=== PATIENT | female | born 1945 | race Caucasian/White ===

== ENCOUNTER 2021-07-15 19:57 | Inpatient (IN) | payer OTHER ==
[~2021-07-15] VITALS: Ht 157.5 cm; Wt 70.3 kg
[2021-07-15 20:04] VITALS: BP_SYST 150
--- NOTE | 2021-07-15 20:04 | NUR ---
Placed in room 02 . Placed on spring assembler supervisor, blood pressure machine and pulse oximeter. To gown for exam. Side rails up.
--- NOTE | 2021-07-15 20:15 | NUR ---
ER at bedside examining patient.
[2021-07-15 20:18] LABS: BILIRUBIN,URINE NEGATIVE (NEGATIVE); BLOOD, URINE NEGATIVE (NEGATIVE); CLARITY/URINE CLEAR (CLEAR); COLOR,URINE YELLOW (YELLOW); GLUCOSE,URINE NEGATIVE (NEGATIVE); KETONES,URINE NEGATIVE (NEGATIVE); LEUKOCYTE ESTERASE ,URINE NEGATIVE (NEGATIVE); NITRITE, URINE NEGATIVE (NEGATIVE); PROTEIN URINE NEGATIVE (NEGATIVE); UROBILINOGEN,URINE 0.2 (0.2-1.0)
--- NOTE | 2021-07-15 20:19 | NUR ---
75 yr old AOX2 gabonese speaking female brought in by ALS with a complaint of chest pain. Pt reports feeling pressure but denies difficulty breathing or nausea. Pt has HX of HTN and DM, skin intact and states she uses a wheelchair for assistance. MD at the bedside. will monitor closely.
[2021-07-15 20:47] LABS: BASOPHILS # (AUTO) 0.1 K/uL (0.0-0.2); BASOPHILS % (AUTO) 0.5 % (0.0-2.0); EOSINOPHILS % (AUTO) 0.4 % (0.0-4.0); HEMATOCRIT 36.3 % (36-48); HEMOGLOBIN 12.1 g/dL (12.0-16.0); LYMPHOCYTES # (AUTO) 3.6 K/uL (1.0-5.5); LYMPHOCYTES % (AUTO) 35.9 % (20.5-51.5); MEAN CORPUSCULAR HEMOGLOBIN 32 pg (27-31); MEAN CORPUSCULAR HGB CONC 33 % (32-36); MEAN CORPUSCULAR VOLUME 95 fL (79.0-98.0); MONOCYTES # (AUTO) 0.6 K/uL (0.0-1.0); MONOCYTES % (AUTO) 5.7 % (1.7-9.3); NEUTROPHILS # (AUTO) 5.7 K/uL (1.8-7.7); NEUTROPHILS % (AUTO) 57.5 % (40.0-70.0); PLATELET COUNT (AUTO) 297 K/uL (130-430); RED BLOOD CELL COUNT(AUTO) 3.81 MIL/uL (4.2-6.2); RED CELL DISTRIBUTION WIDTH 14.3 % (9.0-15.0)
[2021-07-15 20:53] LABS: ANION GAP 8 (5-15); CALCIUM 10.9 mg/dL (8.4-11.0); CHLORIDE 105 mmol/L (98-107); CREATININE 0.88 mg/dL (0.55-1.30); GLUCOSE 165 mg/dL (70-99); POTASSIUM 4.5 mmol/L (3.5-5.1); SODIUM SERUM 138 mmol/L (136-145); UREA NITROGEN, BLOOD 25 mg/dL (8-21)
[2021-07-15 21:08] LABS: ALANINE AMINOTRANSFERASE 12 U/L (12-78); ALBUMIN 3.3 g/dL (3.4-4.8); ASPARTATE AMINOTRANSFERASE 19 U/L (10-37); LIPASE 197 U/L (73-393); TOTAL BILIRUBIN 0.5 mg/dL (0.0-1.0)
[2021-07-15] MEDS ORDERED: NITROGLYCERIN 1 INCH (GM) OINT. TP ONE (22:00)
[2021-07-15] MEDS ORDERED: NITROGLYCERIN 0.4 MG TAB.SUBL SL ONE (22:00)
[2021-07-15] MEDS ORDERED: NACL 0.9% 1,000 ML IV ONE ×2 (22:30→23:00)
[2021-07-15] MEDS ORDERED: cefTRIAXone 1 GM IVPB PREMIX 50 ML IV ONE (23:00)
[2021-07-15] MEDS ORDERED: PIPERACILLIN/TAZO 3.375 GM in NS 50 ML IV ONE (23:00)
[2021-07-15] MEDS ORDERED: ACETAMINOPHEN 325 MG TABLET PO PRN (23:00)
[2021-07-15] MEDS ORDERED: HYDROcodone/ACETAMIN 5-325 MG TAB (NORCO/ VICODIN) PO PRN (23:00)
[2021-07-15] MEDS ORDERED: ALBUTEROL SULFATE 0.083% 2.5 MG/3 ML VIAL.NEB INH PRN (23:00)
[2021-07-15] MEDS ORDERED: ONDANSETRON HCL 4 MG/2 ML VIAL IVP PRN (23:00)
--- NOTE | 2021-07-15 23:26 | NUR ---
Admit bed requested Patient will be admitted to care of . Admitted to TELE unit. Diagnosis CHEST PAIN Inpatient (Yes or No) NO Observation (Yes or No) YES Orientation concerns or request close to nursing station (Yes or No) YES Covid Status NEGATIVE On vent or bipap NO Isolation requirements NO Needs a sitter NO From Home (Yes or if No enter name of facility) YES Requires Dialysis (Yes or No) NO Med Rec Completed (Yes of No) PENDING
--- NOTE | 2021-07-16 | NUR ---
PT SOILED WITH URINE. PT CLEANED AND REPOSITIONED. LINENS CHANGED AND PT GOWN CHANGED. PT PENDING ADMISSION, WILL MONITOR CLOSELY
[2021-07-16] MEDS ORDERED: PIPERACILLIN/TAZOBACTAM 3.375 GM/VIAL (ZOSYN) IV ONE (00:38)
--- NOTE | 2021-07-16 01:30 | NUR ---
Admission Note RECEIVED PT FROM ER WITH DIAGNOSIS OF CHESTPAIN. AOX2,SLIGHTLY DISORIENTED, INITIAL PLAN OF CARE DISCUSSED-PATIENT NEEDS FURTHER TEACHING, ORIENTED TO ROOM,CALL LIGHT , PAIN MANAGEMENT AND SAFETY, CALL LIGHT WITHIN REACH, SIDE RAILS UP X3, BSC WITHIN IMMEDIATE REACH, PT REPOSITIONS SELF PER COMFORT, WILL CONTINUE TO MONITOR.
--- NOTE | 2021-07-16 01:45 | NUR ---
CONSULTATION PAGED/CALLED Reason for Consultation: CHEST PAIN Person Who was Notified: BERONICA Consulting Physician: SAIRA Visual Aid Expert Specialty: Ordering Physician: FRED
--- NOTE | 2021-07-16 01:50 | NUR ---
BEDSIDE REPORT LONA TO PADMINI OAKLEY. PT TRANSPORTED IN STABLE CONDITION, WITH ALL BELONGINGS. ALL QUESTONS ANSWERED
[2021-07-16 01:58] VITALS: BP_SYST 124
[2021-07-16 03:57] VITALS: BP_SYST 150
--- NOTE | 2021-07-16 06:00 | NUR ---
PT RESTING COMFORTABLY IN BED, NO ACUTE DISTRESS OR DISCOMFORT NOTED, BED EXIT ALARM ON, ALL FALL PROTOCOLS MAINTAINED, WILL CONTINUE TO MONITOR.
[2021-07-16 07:01] LABS: ALANINE AMINOTRANSFERASE 15 U/L (12-78); ALBUMIN 2.8 g/dL (3.4-4.8); ANION GAP 7 (5-15); ASPARTATE AMINOTRANSFERASE 20 U/L (10-37); CHLORIDE 107 mmol/L (98-107); CREATININE 0.81 mg/dL (0.55-1.30); GLUCOSE 98 mg/dL (70-99); POTASSIUM 3.7 mmol/L (3.5-5.1); SODIUM SERUM 141 mmol/L (136-145); TOTAL BILIRUBIN 0.3 mg/dL (0.0-1.0); UREA NITROGEN, BLOOD 22 mg/dL (8-21)
[2021-07-16 07:20] LABS: BASOPHILS % (AUTO) 0.4 % (0.0-2.0); EOSINOPHILS # (AUTO) 0.1 K/uL (0.0-0.4); HEMOGLOBIN 11.1 g/dL (12.0-16.0); LYMPHOCYTES # (AUTO) 3.6 K/uL (1.0-5.5); LYMPHOCYTES % (AUTO) 38.7 % (20.5-51.5); MEAN CORPUSCULAR HEMOGLOBIN 32 pg (27-31); MEAN CORPUSCULAR HGB CONC 34 % (32-36); MEAN CORPUSCULAR VOLUME 95 fL (79.0-98.0); MONOCYTES # (AUTO) 0.5 K/uL (0.0-1.0); MONOCYTES % (AUTO) 5.8 % (1.7-9.3); NEUTROPHILS % (AUTO) 54.1 % (40.0-70.0); PLATELET COUNT (AUTO) 268 K/uL (130-430); RED BLOOD CELL COUNT(AUTO) 3.48 MIL/uL (4.2-6.2); WHITE BLOOD COUNT (AUTO) 9.3 K/uL (4.8-10.8)
--- NOTE | 2021-07-16 07:27 | NUR ---
SHIFT CHANGE REPORT. REPORT GIVEN TO GEORGIE RN FOR CONTINUITY OF CARE,ALL QUESTIONS WERE ANSWERED AND RN VERBALIZED UNDERSTANDING.
[2021-07-16 08:02] VITALS: BP_SYST 126
[2021-07-16] MEDS: ASPIRIN 81 MG TAB.CHEW PO SCH (08:52)
--- NOTE | 2021-07-16 08:53 | NUR ---
PATIENT'S FAMILY AT BEDSIDE. Addendum: 07/16/21 at 0900 by Mehran Becerril RN ASK FAMILY TO BRING HER HOME MEDS FROM HOME.
[2021-07-16] MEDS ORDERED: TRAZ-250 PO (09:44)
[2021-07-16] MEDS ORDERED: GABA-529 PO (09:44)
[2021-07-16] MEDS ORDERED: METF500S7 PO (09:44)
[2021-07-16] MEDS ORDERED: LOSA100T3 PO (09:44)
[2021-07-16] MEDS ORDERED: INSNLG7030 SUBCUT (09:44)
[2021-07-16] MEDS ORDERED: ASPI-859 PO (09:44)
--- NOTE | 2021-07-16 09:51 | NUR ---
DR CHÁVEZ HERE AND SEEN PT.
[2021-07-16] MEDS ORDERED: POLYETHYLENE GLYCOL 3350, 17 GM/ POWD.PACK PO ONE (11:15)
[2021-07-16] MEDS: NACL 0.9% 1,000 ML IV SCH ×2 (11:18→20:54)
--- NOTE | 2021-07-16 11:20 | NUR ---
PT COMPLAINED OF CHESTPAIN, , PATIENT PLACED ON O2 2L PER NC. PAGED AND INFORMED DR CHÁVEZ, NEW ORDERS GIVEN AND CARRIED OUT. WILL CONT TO MONITOR.
--- NOTE | 2021-07-16 11:38 | NUR ---
Department Clerk FORTUNATO Schreiber received a request for support from PADMINI Lanier while she is supporting case management. At this time they are making attempts to locate previous home health provider. SCRIPT EDITOR reviewed notes from previous stay and provided PADMINI Lanier with contact information for HCP Analytic Programmer Sirisha to assist with needed information. FORTUNATO Schreiber will continue to be available as needed
[2021-07-16] MEDS: NITROGLYCERIN 0.4 MG TAB.SUBL SL PRN (11:41)
--- NOTE | 2021-07-16 11:41 | NUR ---
PT GIVEN NITROGLY, PT STATED THAT CHEST PAIN IS A LITTLE BETTER THIS TIME. WILL CONT TO MONITOR.
[2021-07-16] MEDS ORDERED: MORPHINE 2 MG/ML INJ. SYRINGE IVP PRN (11:45)
[2021-07-16] MEDS ORDERED: NALOXONE HCL 0.4 MG/ML AMP (NARCAN) IVP PRN (11:45)
[2021-07-16] MEDS ORDERED: ACETAMINOPHEN 325 MG TABLET PO PRN (11:45)
[2021-07-16 11:50] VITALS: BP_SYST 153
--- NOTE | 2021-07-16 11:53 | NUR ---
PT STATED HER CHEST PAIN IS BETTER NOW BUT SHE HAS HEADACHE NOW. WILL GIVEN TYLENOL. EXPLAINED TO PT THAT IT IS THE SIDE EFFECTS OF NITRO. PT NEEDS FURTHER INSTRUCTION.
--- NOTE | 2021-07-16 12:04 | NUR ---
PT NOW EATING LUNCH, CHEST PAIN IS BETTER NOW, GIVEN TYLENOL FOR HEADACHE. MIRALAX GIVEN TOO.
[2021-07-16] MEDS ORDERED: PEG 400/HYPROMELLOSE/GLYCERIN 15 ML DROPS OP ONE (14:00)
--- NOTE | 2021-07-16 14:18 | NUR ---
ASSISTED PT TO BS COMMODE BY CNI STUDENT RN.
--- NOTE | 2021-07-16 14:54 | NUR ---
Patient not with [facility], patient revoke hospice on admission [facility] [phone] will not be [facility] until 08/01/21
[2021-07-16] MEDS: PEG 400/HYPROMELLOSE/GLYCERIN 15 ML DROPS OP SCH ×2 (17:56→20:55)
[2021-07-16] MEDS ORDERED: metFORMIN HCL 500 MG TABLET PO SCH (18:00)
[2021-07-16] MEDS: INSULIN REGULAR, HUMAN 100 UNITS/ML, 10 ML VIAL (humuLIN R) SUBCUT PRN ×2 (18:01→21:01)
--- NOTE | 2021-07-16 19:30 | NUR ---
OPENING NOTES: Patient received from AM shift. Patient is AA&Ox4 able to communicated needs, denies chest pain or SOB. Chest rise is even and unlabored and patient is RA at this time. Normal heart sounds present S1 & S2 on tele monitoring. Active bowel sounds x4 on auscultation denies pain with palpation. Patient just came off commode where she had x1 Lg bowel movement.. Patient voids and independently in the commode as well. No skin issues are noted. Patient is stable, safety protocols are in place and patient has call light within reach. Will monitor throughout the shift.
[2021-07-16 20:00] VITALS: BP_SYST 147
[2021-07-16] MEDS: traZODone HCL 50 MG TABLET (DESYREL) PO SCH (20:55)
--- NOTE | 2021-07-17 01:00 | NUR ---
Rounds: Patient is in bed resting no s/s of distress is noted at this time. Chest rise continues to be even and unlabored and patient remains on tele monitoring. Safety protocols are in place and patient has call light within reach. Will continue to monitor.
[2021-07-17 02:00] VITALS: BP_SYST 112
[2021-07-17] MEDS: NACL 0.9% 1,000 ML IV SCH ×2 (06:09→18:45)
--- NOTE | 2021-07-17 06:41 | NUR ---
CLOSING NOTES: Patient is in bed resting at this time she is slightly confused as to her current location but cooperative and was able to reorient to situation and environment. All current shift needs have been met and patient is stable at this time. Safety protocols remain in place and patient has call light within reach. Will differ care to AM shift nurse for continuity of care.
[2021-07-17 07:45] VITALS: BP_SYST 134
--- NOTE | 2021-07-17 07:55 | NUR ---
seen pt in bed, pt still very sleepy, vitals taken, bp wnl. no fever. breakfast serve but pt does not want to awaken yet. just closes her eyes. will offer breakfast again later.
[2021-07-17] MEDS: ASPIRIN 81 MG TABLET(ECOTRIN) PO SCH (09:00)
[2021-07-17] MEDS: PEG 400/HYPROMELLOSE/GLYCERIN 15 ML DROPS OP SCH ×4 (09:05→20:36)
[2021-07-17] MEDS: LOSARTAN POTASSIUM 50 MG TABLET (COZAAR) PO SCH (09:06)
[2021-07-17] MEDS: GABAPENTIN 100 MG CAPSULE PO SCH (09:06)
[2021-07-17] MEDS: POLYETHYLENE GLYCOL 3350, 17 GM/ POWD.PACK PO SCH (09:06)
[2021-07-17] MEDS: ASPIRIN 81 MG TAB.CHEW PO SCH (09:06)
--- NOTE | 2021-07-17 09:24 | NUR ---
pt used the bs commode to void. pt set up for breakfast, amd meds offered and taken by pt.
--- NOTE | 2021-07-17 10:20 | NUR ---
pt's spouse at bedside. pt is resting in bed.
[2021-07-17] MEDS: INSULIN REGULAR, HUMAN 100 UNITS/ML, 10 ML VIAL (humuLIN R) SUBCUT PRN ×3 (11:32→20:45)
[2021-07-17 11:42] VITALS: BP_SYST 158
--- NOTE | 2021-07-17 15:00 | NUR ---
PT'S AT BEDSIDE. PT SITTING ON EOB. INFORMED THEM THAT DR GONZALEZ PLANS TO DC PT IN AM.
[2021-07-17 17:29] VITALS: BP_SYST 147
--- NOTE | 2021-07-17 18:58 | NUR ---
PATIENT HAS BEEN STABLE STABLE THE SHIFT, VOID ON THE BS COMMODE, BLOOD SUGAR CHECKED. LEVEL SLIGHTLY ELEVATED. GIVEN INSULIN COVERAGE. POSSIBLE IN AM PER PMD.
--- NOTE | 2021-07-17 19:38 | NUR ---
OPENING NOTES; Patient received from AM shift. Patient is AA&Ox3 able to make needs known, denies any chest pain or SOB at this time. Chest rise is even and unlabored on RA. Normal heart sounds present on tele monitoring. Active bowel sounds x4 on auscultation, denies pain with palpation, no distention is noted at this time. No skin issues noted at this time. Patient has a new PIV to the left forearm 22G patent and infusing NS at 100ml/hr. Patient is continent of Bowel and bladder and ambulates to the bedside commode with minimal assist. Patient is currently stable at this time and safety measures are in place and call light is within reach. Will resume care and monitor throughout the shift.
[2021-07-17 20:00] VITALS: BP_SYST 151
[2021-07-17] MEDS: traZODone HCL 50 MG TABLET (DESYREL) PO SCH (20:37)
[2021-07-17 23:16] VITALS: BP_SYST 137
--- NOTE | 2021-07-18 00:46 | NUR ---
ROUNDS: Patient is in bed resting no s/s of distress at this time. Chest rise is even and unlabored and patient remain on RA. Safety measures are in place, bed alarm is armed, and patient has call light within reach. Will continue to monitor.
[2021-07-18] MEDS: NACL 0.9% 1,000 ML IV SCH ×2 (05:53→11:58)
--- NOTE | 2021-07-18 06:14 | NUR ---
CLOSING NOTES: Patient is in bed resting no s/s of distress at this time. Chest rise is even & unlabored on RA. All shift needs have been met at this time and patient is able to communicate needs. Safety measures are in place as per protocol and patient has call light within reach. Will differ current care to AM shift nurse fro continuity of care.
[2021-07-18 06:19] LABS: BASOPHILS # (AUTO) 0.1 K/uL (0.0-0.2); BASOPHILS % (AUTO) 0.7 % (0.0-2.0); EOSINOPHILS # (AUTO) 0.1 K/uL (0.0-0.4); EOSINOPHILS % (AUTO) 1.2 % (0.0-4.0); HEMATOCRIT 31.9 % (36-48); HEMOGLOBIN 11.1 g/dL (12.0-16.0); LYMPHOCYTES # (AUTO) 3.6 K/uL (1.0-5.5); LYMPHOCYTES % (AUTO) 42.5 % (20.5-51.5); MEAN CORPUSCULAR HEMOGLOBIN 33 pg (27-31); MEAN CORPUSCULAR HGB CONC 35 % (32-36); MEAN CORPUSCULAR VOLUME 94 fL (79.0-98.0); MONOCYTES # (AUTO) 0.6 K/uL (0.0-1.0); MONOCYTES % (AUTO) 7.2 % (1.7-9.3); NEUTROPHILS # (AUTO) 4.1 K/uL (1.8-7.7); NEUTROPHILS % (AUTO) 48.4 % (40.0-70.0); PLATELET COUNT (AUTO) 274 K/uL (130-430); RED CELL DISTRIBUTION WIDTH 13.5 % (9.0-15.0); WHITE BLOOD COUNT (AUTO) 8.5 K/uL (4.8-10.8)
[2021-07-18 06:45] LABS: ANION GAP 9 (5-15); CALCIUM 9.9 mg/dL (8.4-11.0); CHLORIDE 107 mmol/L (98-107); CREATININE 0.77 mg/dL (0.55-1.30); GLUCOSE 108 mg/dL (70-99); POTASSIUM 3.7 mmol/L (3.5-5.1); SODIUM SERUM 142 mmol/L (136-145); UREA NITROGEN, BLOOD 19 mg/dL (8-21)
[2021-07-18 08:00] VITALS: BP_SYST 140
--- NOTE | 2021-07-18 08:00 | NUR ---
RECEIVED REPORT FROM PM NURSE. PT IS RESTING IN BED, AAO x3. DENIES PAIN/DISCOMFORT. RESPIRATIONS EVEN AND UL ON RA. IV SITE TO LFA, NS INFUSING PER MD ORDER. FALL PRECAUTIONS IN PLACE. SAFETY MEASURES IN PLACE, CALL LIGHT IN REACH.
[2021-07-18] MEDS: GABAPENTIN 100 MG CAPSULE PO SCH (08:25)
[2021-07-18] MEDS: POLYETHYLENE GLYCOL 3350, 17 GM/ POWD.PACK PO SCH (08:25)
[2021-07-18] MEDS: ASPIRIN 81 MG TAB.CHEW PO SCH (08:25)
[2021-07-18] MEDS: ASPIRIN 81 MG TABLET(ECOTRIN) PO SCH (08:28)
[2021-07-18] MEDS: PEG 400/HYPROMELLOSE/GLYCERIN 15 ML DROPS OP SCH ×3 (08:29→16:50)
[2021-07-18] MEDS: LOSARTAN POTASSIUM 50 MG TABLET (COZAAR) PO SCH (08:35)
[2021-07-18 11:23] VITALS: BP_SYST 145
[2021-07-18] MEDS: INSULIN REGULAR, HUMAN 100 UNITS/ML, 10 ML VIAL (humuLIN R) SUBCUT PRN ×2 (11:57→16:54)
[2021-07-18] MEDS: NITROGLYCERIN 0.4 MG TAB.SUBL SL PRN ×2 (13:29→13:36)
--- NOTE | 2021-07-18 14:00 | NUR ---
1330 PT C/O 10/10 CHEST PAIN, V/S: BP 138/64, HR 72, 02 100% RA. ADMINISTERED NITRO DOSE x1 SL. 1335 PT STILL C/O CP- V/S: BP 119/59, HR 75, 02 100% 2LNC. ADMINISTERED 2ND DOSE NITRO SL. PAGED 1340 V/S: BP 98/55, HR 72, 02 98% 2LNC. RECHECKED V/S: BP 108/57, HR 75, O2 98% 2LNC. ADMINISTERED MORPHINE IVP PER ORDER, PT C/O 8/10 CP. ACCOUNT CONSULTANTPADMINI ROJAS AT BEDSIDE. AWAITING CALL BACK FROM 1400 V/S: BP 115/55, HR 66, 02 100% 2LNC. PATIENT STATES CHEST PAIN IS 3/10 AND HAS DECREASED. RESPIRATIONS EVEN AND UL ON 2LNC. AWAITING CALL BACK FROM . WILL CONT TO MONITOR.
[2021-07-18 15:31] VITALS: BP_SYST 114
--- NOTE | 2021-07-18 18:03 | NUR ---
PATIENT RESTING IN BED EATING DINNER, FAMILY AT BEDSIDE. PATIENT DENIES CHEST PAIN/DISCOMFORT. PATIENT STATES SHE FEELS MUCH BETTER. RECEIVED CALL FROM DR. SAIRA MD STATED PATIENT CAN BE DISCHARGED NOW.
[2021-07-18 19:02] VITALS: BP_SYST 114
--- NOTE | 2021-07-18 19:24 | NUR ---
REPORT GIVEN TO PM NURSE FOR CONTINUITY OF CARE.
--- NOTE | 2021-07-18 20:38 | NUR ---
D/C Patient to home via private vehicle with the on the side. Patient's a/o x4 in no acute distress. Patient's given medication reconciliation form and D/C instructions. Patient verbalized understanding of the instructions. Patient's ID band and IV catheter removed. Applied gauze to the IV puncture site, no bleeding noted. Personal FWW is given to the 's and no other belongings except pt's clothing. Patient's stable with no c/o chest pain or discomfort. VSS. BP 136/76; WA 67; RR 18; Temp. 98.1.
--- NOTE | 2021-07-27 09:46 | NUR ---
Internal Communications Specialist CABLE SYSTEMS INSTALLER made a Post Discharge Follow-Up Phone Call to former ptKary King, but her son Ren Valencia answered stating his mom was doing fine, no concerns, is taking meds as prescribed. Ren thanked CABLE SYSTEMS INSTALLER for the follow up.
== END 2021-07-18 20:38 | disposition home or self-care (01) | DRG 313 ==
LOC: SED 19:57 → STU 22:56 → OBSVTOIN 22:56 → INTOOBSV 22:56 → STU 23:32
PROVIDERS: ADMIT Internal Medicine Hospice and Palliative Medicine; ATTEND General Practice
DX: R07.89 Other chest pain (principal); E87.2 Acidosis; E11.9 Type 2 diabetes mellitus without complications; I10 Essential (primary) hypertension; F03.90 Unspecified dementia, unspecified severity, without behavioral disturbance, psychotic disturbance, mood disturbance, and anxiety; Z20.822 Contact with and (suspected) exposure to COVID-19; I35.8 Other nonrheumatic aortic valve disorders; Z90.710 Acquired absence of both cervix and uterus; Z79.82 Long term (current) use of aspirin; Z79.4 Long term (current) use of insulin; Z79.84 Long term (current) use of oral hypoglycemic drugs; Z79.899 Other long term (current) drug therapy
CPT/HCPCS: 36415; 71045; 80048; 80053; 81003; 82962; 83605; 83690; 83735; 83880; 84484; 85025; 87040; 93005; 96374; 96375; 99291; G0378; J0696; J2270; J2543; J7030

== ENCOUNTER 2023-10-03 11:23 | Emergency (ER) | payer OTHER ==
[~2023-10-03] VITALS: Ht 157.5 cm; Wt 74.8 kg
[~2023-10-03 11:23] MED LIST: ASPI-859 PO; GABA-529 PO; INSNLG7030 SUBCUT; LOSA-415 PO; METF500S9 PO; TRAZ-250 PO
[2023-10-03 11:37] VITALS: BP_SYST 140; PULSE 66; RESP 16; TEMP 97.9; O2SAT 97
[2023-10-03 12:29] LABS: BASOPHILS # (AUTO) 0.1 K/uL (0.0-0.2); BASOPHILS % (AUTO) 0.8 % (0.0-2.0); EOSINOPHILS # (AUTO) 0.1 K/uL (0.0-0.4); EOSINOPHILS % (AUTO) 1.7 % (0.0-4.0); HEMATOCRIT 38.6 % (36-48); HEMOGLOBIN 12.6 g/dL (12.0-16.0); LYMPHOCYTES # (AUTO) 2.4 K/uL (1.0-5.5); LYMPHOCYTES % (AUTO) 27.5 % (20.5-51.5); MEAN CORPUSCULAR HEMOGLOBIN 31 pg (27-31); MEAN CORPUSCULAR HGB CONC 33 % (32-36); MEAN CORPUSCULAR VOLUME 95 fL (79.0-98.0); MONOCYTES # (AUTO) 0.6 K/uL (0.0-1.0); MONOCYTES % (AUTO) 6.5 % (1.7-9.3); NEUTROPHILS # (AUTO) 5.5 K/uL (1.8-7.7); NEUTROPHILS % (AUTO) 63.5 % (40.0-70.0); PLATELET COUNT (AUTO) 224 K/uL (130-430); RED BLOOD CELL COUNT(AUTO) 4.08 MIL/uL (4.2-6.2); RED CELL DISTRIBUTION WIDTH 14.8 % (9.0-15.0); WHITE BLOOD COUNT (AUTO) 8.6 K/uL (4.8-10.8)
[2023-10-03 12:41] LABS: ANION GAP 4 (5-15); CALCIUM 10.5 mg/dL (8.4-11.0); CARBON DIOXIDE 32 mmol/L (23-29); CHLORIDE 107 mmol/L (98-107); CREATINE KINASE, TOTAL 18 U/L (26-192); CREATININE 0.85 mg/dL (0.55-1.30); GLUCOSE 121 mg/dL (74-106); POTASSIUM 4.8 mmol/L (3.5-5.1); SODIUM SERUM 143 mmol/L (136-145); UREA NITROGEN, BLOOD 16 mg/dL (8-21)
[2023-10-03 12:49] LABS: INFLUENZA TYPE A Negative (NEGATIVE); INFLUENZA TYPE B NEGATIVE (NEGATIVE)
[2023-10-03 13:35] LABS: BILIRUBIN,URINE NEGATIVE (NEGATIVE); BLOOD, URINE NEGATIVE (NEGATIVE); CLARITY/URINE CLEAR (CLEAR); COLOR,URINE YELLOW (YELLOW); GLUCOSE,URINE NEGATIVE (NEGATIVE); KETONES,URINE NEGATIVE (NEGATIVE); LEUKOCYTE ESTERASE ,URINE NEGATIVE (NEGATIVE); NITRITE, URINE NEGATIVE (NEGATIVE); PROTEIN URINE NEGATIVE (NEGATIVE); UROBILINOGEN,URINE 0.2 (0.2-1.0)
[2023-10-03] MEDS: hydrALAZINE HCL 20 MG/ML VIAL IVP ONE (13:42)
[2023-10-03 13:50] VITALS: BP_SYST 140; PULSE 85; RESP 18; TEMP 98.3; O2SAT 98
== END 2023-10-03 13:57 | disposition home or self-care (01) ==
LOC: SED 11:23
DX: S32.008A Other fracture of unspecified lumbar vertebra, initial encounter for closed fracture (principal); Z20.822 Contact with and (suspected) exposure to COVID-19; E11.9 Type 2 diabetes mellitus without complications; I10 Essential (primary) hypertension; Z79.899 Other long term (current) drug therapy; Z79.2 Long term (current) use of antibiotics; X58.XXXA Exposure to other specified factors, initial encounter; Y93.89 Activity, other specified; Y92.89 Other specified places as the place of occurrence of the external cause; Y99.8 Other external cause status
CPT/HCPCS: 36415; 80048; 81001; 81003; 82550; 82948; 85025; 93005; 99284